=== PATIENT | female | born 1965 | race Caucasian/White ===

== ENCOUNTER 2022-11-13 08:36 | Emergency (ER) | payer SELFPAY ==
[2022-11-13] MEDS ORDERED: Sodium Chloride 0.9% 10 ML Syringe FLUSH PRN (08:49)
[2022-11-13] MEDS ORDERED: Cyclobenzaprine 10 MG Tab PO ONE (09:16)
[2022-11-13] MEDS ORDERED: Aspirin 81 MG Tab.Chew PO ONE (09:16)
[2022-11-13] MEDS ORDERED: Ketorolac 30 MG/ML SDV IVPUSH ONE (09:47)
== END 2022-11-13 11:28 | disposition home or self-care (01) ==
LOC: JD.ED 08:36
DX: R07.89 Other chest pain (principal); Z72.0 Tobacco use
CPT/HCPCS: 36415; 71046; 80053; 83690; 84484; 85025; 85379; 93005; 96374; 99285; A9270; J1885; J3490; 93010; 99284